=== PATIENT | female | born 1970 | race Caucasian/White ===

== ENCOUNTER → 2016-10-23 | Outpatient (CLI) | payer BC ==
--- NOTE | 2016-10-24 15:26 | XR ---
EXAMINATION TYPE: XR chest 2V DATE OF EXAM: 10/23/2016 11:53 AM COMPARISON: NONE INDICATION: Cough x3 weeks TECHNIQUE: Frontal and lateral views of the chest are obtained. FINDINGS: The heart size is normal. The pulmonary vasculature is normal. The lungs are clear. IMPRESSION: 1. No acute pulmonary process.
== END ==
LOC: RADXRYALE 10:07
PROVIDERS: ATTEND Internal Medicine
DX: R05 Cough (principal)
CPT/HCPCS: 71020

== ENCOUNTER → 2024-06-07 | Outpatient (CLI) | payer BC ==
--- NOTE | 2024-06-07 13:26 | XR ---
EXAMINATION TYPE: XR shoulder complete RT DATE OF EXAM: 06/07/2024 CLINICAL HISTORY: Pain TECHNIQUE: Three views of the right shoulder are obtained. COMPARISON: None. FINDINGS: There is no acute fracture/dislocation evident in the right shoulder. Moderate narrowing a t the acromioclavicular joint. Distal acromion morphology is unremarkable. Glenohumeral joint is pres erved The visualized ribs are intact. IMPRESSION: As above. [facility], , 06/07/2024 1:23 PM
== END | disposition home or self-care (01) ==
LOC: RADXRYALE 13:07
PROVIDERS: ATTEND Internal Medicine
DX: M25.511 Pain in right shoulder (principal)